=== PATIENT | male | born 1955 | race Caucasian/White ===

== ENCOUNTER 2019-07-18 20:24 | Emergency (ER) | payer MEDICARE, OTHER ==
[~2019-07-18] VITALS: Ht 185.4 cm; Wt 90.7 kg
--- NOTE | 2019-07-18 20:30 | NUR ---
PT BIBWIFE C/O MULTIPLE LACERATIONS ON RIGHT UPPER EXTREMITY S/P GLF LIMOUSINE AND HEARSE UPHOLSTERER. DENIES KO, HEAD INJURY, DIZZINESS. PT STATES HE CUT HIS ARM ON METAL FIXTURE DURING FALL. UNKNOWN TETANUS STATUS. BLEEDING CONTROLLED ON ARRIVAL. PT AAOX4. RESPIRATIONS EVEN AND UNLABORED. VITAL SIGNS STABLE. NO ACUTE DISTRESS NOTED AT THIS TIME
--- NOTE | 2019-07-18 20:35 | NUR ---
WOUND CARE PROVIDED TO PT
[2019-07-18] MEDS ORDERED: TDAP [DIPH/PERTUSSIS/TET] 0.5 ML VIAL IM ONE ×2 (20:39→21:00)
[2019-07-18] MEDS ORDERED: LIDOCAINE 1%-EPI 1:100,000 20 ML VIAL ONE (20:39)
--- NOTE | 2019-07-18 20:55 | NUR ---
ERLIN SÁNCHEZ AT BEDSIDE FOR SUTURE REPAIR
[2019-07-18] MEDS ORDERED: LIDOCAINE 1%-EPI 1:200,000 SDV 10 ML VIAL IJ ONE (21:00)
[2019-07-18 21:35] VITALS: BP 123/80
--- NOTE | 2019-07-18 22:00 | NUR ---
Patient discharged to home in stable condition. Written and verbal after care instructions given. Patient verbalizes understanding of instruction.
== END 2019-07-18 22:00 | disposition home or self-care (01) ==
LOC: ER 20:26
DX: S51.811A Laceration without foreign body of right forearm, initial encounter (principal); I10 Essential (primary) hypertension; F10.10 Alcohol abuse, uncomplicated; Y90.9 Presence of alcohol in blood, level not specified; W01.0XXA Fall on same level from slipping, tripping and stumbling without subsequent striking against object, initial encounter; Y93.89 Activity, other specified; Y92.89 Other specified places as the place of occurrence of the external cause; Y99.8 Other external cause status
CPT/HCPCS: 12005; 90471; 90715; 99283; J3490 ×2